=== PATIENT | female | born 1970 | race Caucasian/White ===

== ENCOUNTER 2018-06-15 04:24 | Emergency (ER) | payer OTHER ==
[~2018-06-15] VITALS: Ht 154.9 cm; Wt 72.6 kg
[2018-06-15 04:40] VITALS: BP_SYST 131
[2018-06-15] MEDS ORDERED: KETOROLAC TROMETHAMINE 60 MG/2 ML VIAL IM ONE (05:00)
[2018-06-15 05:20] VITALS: BP_SYST 134
== END 2018-06-15 05:20 | disposition home or self-care (01) ==
LOC: SED 04:24
DX: M25.532 Pain in left wrist (principal); Z90.710 Acquired absence of both cervix and uterus; Z88.0 Allergy status to penicillin
CPT/HCPCS: 29125; 73110; 96372; 99284; J1885